=== PATIENT | male | born 1965 | race Caucasian/White ===

== ENCOUNTER 2017-01-05 10:14 | Day surgery (SDC) | payer OTHER ==
[2017-01-05] MEDS ORDERED: LIDOCAINE 1% 2 ML INJ ONE (10:52)
[2017-01-05] MEDS ORDERED: LIDOCAINE 1% 5 ML SDV ID PRN (11:04)
[2017-01-05] MEDS ORDERED: LR 1,000 ML IV ONE (11:04)
[2017-01-05] MEDS ORDERED: MIDAZOLAM 2 MG/2 ML VIAL ONE (11:57)
[2017-01-05] MEDS ORDERED: fentaNYL 100 MCG/2 ML INJ ONE (12:19)
[2017-01-05] MEDS ORDERED: PROPOFOL/EMULSION 500 MG/50 ML BOTTLE IV ONE (12:20)
--- NOTE | 2017-01-05 13:19 | GPN ---
[f rep st] PROCEDURE NOTE DATE OF PROCEDURE: 01/05/2017 PROCEDURE PERFORMED: Colonoscopy and biopsy. INDICATION FOR COLON CANCER SCREENING: Family history of polyps in his mother, and family history o f colon cancer in his maternal grandmother. PREOPERATIVE DIAGNOSIS: Rule out polyps, rule out cancer. POSTOPERATIVE DIAGNOSES: 1. 2 mm cecal polyp, removed in total by cold biopsy. 2. Left-sided diverticulosis. 3. Normal terminal ileum. INFORMED CONSENT: I discussed with the patient regarding the procedure, alternatives, benefits, and risks including bleeding, perforation, infection, risk of medication. Informed consent was signed and witnessed. COMPLICATIONS: None immediate. MEDICATIONS USED: MAC. DESCRIPTION OF PROCEDURE: After adequate sedation, patient was in left lateral decubitus position. A visual and digital anorectal examination was performed. The video colonoscope was inserted via r ectum and advanced under visualization into the terminal ileum. Identified the ileocecal valve, ashley endiceal orifice, and confluence of tinea. Retroflex exam was performed in the cecum. There was a 2 mm polyp in the cecal pole that was removed in total by cold biopsy. The endoscope was withdrawn slowly with careful attention paid to mucosal detail. The prep was fair and copious washings were p erformed to get a good view of the tissue. There were no other abnormal tissue/polyps noted. The p atient did have moderate left-sided diverticulosis with multiple small and large diverticula in desc ending and sigmoid colon. Retroflex examination was performed in the cecum. The endoscope was then advanced back to the proximal transverse colon and air was removed. The endoscope was then complet peggy withdrawn, confirming the above findings. The patient tolerated the procedure well and was erickson sferred to the recovery room in satisfactory condition. IMPRESSION: 1. 2 mm cecal polyp, removed in total by cold biopsy. 2. Left-side diverticulosis. 3. Normal terminal ileum. RECOMMENDATIONS: 1. Follow up pathology on polyp. 2. Repeat colonoscopy in 5 years. If polyp is adenomatous, colonoscopy surveillance. The polyp is not adenomatous, colonoscopy screening. 3. High-fiber, high-fluid diet for diverticulosis. There is no need to avoid seeds or nuts. 4. Discharge home when stable with escort. 5. Follow up with primary care physician as scheduled. Thank you for allowing me to participate in this patient's healthcare. Do no hesitate to call me wi th any questions. /[id number]/MODL
== END 2017-01-05 13:37 | disposition home or self-care (01) ==
LOC: FSGY 10:14
PROVIDERS: ATTEND Internal Medicine Gastroenterology
PROC: 0DBH8ZX Excision of Cecum, Via Natural or Artificial Opening Endoscopic, Diagnostic (ICD-10-PCS; principal; 2017-01-05 12:15)
DX: D12.0 Benign neoplasm of cecum (principal); K57.30 Diverticulosis of large intestine without perforation or abscess without bleeding; Z83.71 Family history of colonic polyps
CPT/HCPCS: J2250; J2704; J3010